=== PATIENT | male | born 1970 | race Caucasian/White ===

== ENCOUNTER 2016-06-14 11:42 | Emergency (ER) | payer OTHER ==
[2016-06-14 12:02] VITALS: BP 129/73
--- NOTE | 2016-06-14 12:19 | ERNOTE ---
Upper Extremity HPI - Narrative Date of Service: 06/14/16 - General Extremities Pain Location: elbow: left Time Seen by Provider: 06/14/16 12:08 Source: patient Exam Limitations: no limitations - Immun/Allergies/Home Medications Immunizations: IMMUNIZATION HX History of Influenza Vaccine Yes Hx Pneumococcal Vaccination Yes Allergies/Adverse Reactions: Allergies Allergy/AdvReac Type Severity Reaction Status Date / Time No Known Allergies Allergy Verified 06/14/16 12:02 Home Medications: HOME MEDICATIONS Metoprolol Tartrate [Lopressor] 25 mg PO BID 05/07/12 [Last Taken Unknown] FLUoxetine HCL [Prozac] 20 mg PO DAILY 10/05/15 [Last Taken Unknown] - History of Present Illness Narrative: Pt. comes in with c/o L elbow pain after he tripped three days ago and landed on his outstreched arm. Pt. denies any SOB, CP, NVD, numbness or tingling. Pt. denies any prehospital treatment or alleviaitng facors and states taht only time he has pain is extending his arm. Review of Systems - Review of Systems Constitutional: Present: no symptoms reported. Absent: recent illness, fever, chills, fatigue, malaise EYE: Present: no symptoms reported ENT: Present: no symptoms reported Respiratory: Present: no symptoms reported. Absent: shortness of breath, cough , wheezing Cardiology: Present: no symptoms reported. Absent: chest pain, palpitations, edema Gastrointestinal/Abdominal: Present: no symptoms reported. Absent: nausea, vomiting, diarrhea Musculoskeletal: Present: no symptoms reported. Absent: back pain, joint pain Skin: Present: no symptoms reported Neurological: Present: no symptoms reported. Absent: headache, dizziness/light- headedness, numbness, tingling All Other Systems: All systems neg except as marked - Patient's Past Medical History Patient History - Medical: GERD, Migraines Patient History - Surgical Procedures: Vasectomy - Family History Grandfather-Maternal Family History - Medical: No pertinent hx Family History - Cardiac/Respiratory: CVA/Stroke Grandmother-Maternal Family History - Medical: , No pertinent hx Family History - Cardiac/Respiratory: Myocardial Infarction Mother Family History - Medical: Other Family History - Cardiac/Respiratory: Other - Social History Living Situations: home Alcohol Use: heavy Drug Use: other Physical Exam - Physical Exam General Appearance: Present: wd/wn, alert, no apparent distress Eye Exam: Normal inspection: bilateral, PERRL: bilateral, EOMI: bilateral Neck: Present: normal inspection Respiratory: Present: no respiratory distress, normal breath sounds, no accessory muscle use, chest nontender, lungs clear Cardiovascular/Chest: Present: regular rate, rhythm, no murmur, normal peripheral pulses Back Exam: Present: normal inspection Extremity Exam: Present: decreased range of motion - L elbow, joint swelling - L elbow, other - point tenderness over prox radius Neurological Exam: Present: alert, oriented, normal mood/affect, no motor/ sensory deficits Skin Exam: Present: normal color, warm/dry. Absent: pallor, skin rash ED Progress - Vital Signs Patient's Vital Signs:: I have reviewed the patient's vital signs. Vital Signs: Vital Signs 06/14/16 11:55 Temperature 96.0 C H Pulse Rate 67 Respiratory 12 Rate Blood Pressure 129/73 O2 Sat by Pulse 97 Oximetry - X-Ray X-Ray #1 X-Ray: elbow Interpretation: Reviewed by me X-ray Comments: oblique radial head fracture nondisplaced - Progress/Reassessment Chief Complaint: Upper Extremity Injury/Problem Departure Clinical Impression: Radial head fracture, closed Qualifiers: Encounter type: initial encounter Fracture alignment: nondisplaced Laterality: left Qualified Code(s): S52.125A - Nondisplaced fracture of head of left radius , initial encounter for closed fracture - Departure Disposition: Home self-care Condition: Good Instructions: Radial Head Fracture Additional Instructions: Please follow up with orthopedist by calling their office for appointment. Referrals: Bk Ceron MD [Primary Care Provider] - Jose Henry PAC [[facility]] -
== END 2016-06-14 13:17 | disposition home or self-care (01) ==
LOC: ER 11:42
DX: S52.125A Nondisplaced fracture of head of left radius, initial encounter for closed fracture (principal)